=== PATIENT | male | born 1940 | race American Indian/Alaskan Native ===

== ENCOUNTER 2019-07-30 23:55 | Inpatient (IN) | payer MEDICARE, MEDICAID, OTHER ==
[2019-07-31 00:42] LABS: ANION GAP 14.9 mEq/L (7-13); CHLORIDE,CL 99 mmol/L (98-107); SODIUM,NA 140 mmol/L (136-145)
[2019-07-31] MEDS ORDERED: Iopamidol 612 MG/ML 100 ML Bottle IVPUSH ONE (01:22)
--- NOTE | 2019-07-31 01:25 | CR ---
PROCEDURE INFORMATION: Exam: XR Left Shoulder Exam date and time: 07/31/2019 1:05 AM Age: 79 years old Clinical indication: Pain; Shoulder; Left; Additional info: Fall at home pain TECHNIQUE: Imaging protocol: XR Left shoulder. Views: 2 or more views. COMPARISON: No relevant prior studies available. FINDINGS: Bones/joints: Moderate AC joint degenerative disease. No fracture or dislocation of the shoulder girdle. Incidental finding of an old posterior left 4th rib fracture which has healed. Soft tissues: Normal. IMPRESSION: 1. AC joint degenerative disease. 2. No acute shoulder fracture or dislocation.
--- NOTE | 2019-07-31 01:26 | CR ---
PROCEDURE INFORMATION: Exam: XR Left Humerus Exam date and time: 07/31/2019 1:09 AM Age: 79 years old Clinical indication: Pain; Upper arm; Left; Additional info: Fall at home pain TECHNIQUE: Imaging protocol: XR Left humerus Views: 2 or more views. COMPARISON: No relevant prior studies available. FINDINGS: Bones/joints: Normal. Soft tissues: Normal. IMPRESSION: 1. No acute findings. 2. No fracture or dislocation.
[2019-07-31] MEDS ORDERED: Sodium Chloride 0.9% 500 ML IV ONE (01:28)
[2019-07-31] MEDS ORDERED: Potassium Chloride 20 MEQ in Premix Bag 1 BAG IV ONE (01:28)
--- NOTE | 2019-07-31 01:28 | CR ---
PROCEDURE INFORMATION: Exam: XR Chest, 1 View Exam date and time: 07/31/2019 1:04 AM Age: 79 years old Clinical indication: Cough TECHNIQUE: Imaging protocol: XR of the chest Views: 1 view. COMPARISON: CR Chest 1V Frontal 01/13/2018 10:24 PM FINDINGS: Lungs: No acute lung infiltrates or consolidation. Pleural space: No pleural effusion. Heart/Mediastinum: No hilar fullness or adenopathy. Normal size heart. Vasculature: Mild ectasia of the thoracic aorta. Bones/joints: Multiple old bilateral posterior rib fractures which are healed. IMPRESSION: 1. No acute lung infiltrates or edema. 2. No pleural effusions. 3. Multiple old healed posterior rib fractures.
--- NOTE | 2019-07-31 01:33 | EDM.PDOC ---
ED HPI GENERAL MEDICAL PROBLEM - General Chief Complaint: General Stated Complaint: AMBULANCE Time Seen by Provider: 07/31/19 00:05 Source of Information: Reports: Patient, EMS History Limitations: Reports: No Limitations - History of Present Illness INITIAL COMMENTS - FREE TEXT/NARRATIVE: Multiple falls at home today. Patient states falls almost daily due to changes in BP when he stands up. Unsure why it drops. no meds, ran out 4 months ago and never refilled Reports supposed to be taking plavix for stent in left leg. Prior rib fractures on right in Mar from falling against chair. Ocassional cough since prior to rib fractures, productive white phlegm. Denies fever or chills, No nausea, Vomited one time earlier today after coughing. Not unusual to do that, Stefano excessively large for patient. Admits weight loss unsure how much. States just does not have appetite. Generalized Pain Score (Numeric/FACES): 5 - Related Data Allergies Allergy/AdvReac Type Severity Reaction Status Date / Time aspirin Allergy Cannot Verified 01/13/18 22:20 Remember azithromycin [From Zithromax] Allergy Cannot Verified 01/13/18 22:20 Remember ibuprofen [From Motrin] AdvReac Mild Abdominal Verified 01/13/18 23:07 Pain contrast Allergy Cannot Uncoded 01/13/18 22:20 Remember Home Meds: Home Meds Clopidogrel Bisulfate [Clopidogrel] 1 tab PO DAILY 04/11/14 [History] Simvastatin [Zocor] 1 tab PO BEDTIME 04/11/14 [History] traZODone HCl [Trazodone HCl] 50 mg PO BEDTIME 11/12/14 [History] buPROPion [Wellbutrin] 1 01/13/18 [History] Past Medical History - Past Health History Medical/Surgical History: Denies Medical/Surgical History HEENT History: Reports: Other (See Below) 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 eye either. Cardiovascular History: Reports: High Cholesterol Respiratory History: Reports: Bronchitis, Recurrent, PE, Other (See Below) Other Respiratory History: Has had blood clots to legs. and has a stent to the left groin area. Gastrointestinal History: Reports: Bowel Obstruction, Other (See Below) Musculoskeletal History: Reports: Arthritis, Other (See Below) Other Musculoskeletal History: fx ribs neck and legs. 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 - Past Surgical History GI Surgical History: Reports: Appendectomy, Hernia, Inguinal, Other (See Below) Other GI Surgeries/Procedures: Has esophageal ca. Social & Family History - Family History Family Medical History: Noncontributory - Tobacco Use Smoking Status *Q: Unknown Ever Smoked - Caffeine Use Caffeine Use: Reports: None - Recreational Drug Use Recreational Drug Use: No ED ROS GENERAL - Review of Systems Review Of Systems: Comprehensive ROS is negative, except as noted in HPI. ED EXAM, GENERAL - Physical Exam Exam: See Below Exam Limited By: No Limitations General Appearance: Alert, No Apparent Distress, Thin Eye Exam: Bilateral Eye: EOMI, PERRL Ears: Normal External Exam, Normal TMs Nose: Normal Inspection Throat/Mouth: Normal Inspection Head: Atraumatic, Normocephalic Respiratory/Chest: No Respiratory Distress, Lungs Clear, Decreased Breath Sounds Cardiovascular: Normal Peripheral Pulses, Regular Rate, Rhythm, Tachycardia GI/Abdominal: Normal Bowel Sounds, Soft. No: Guarding Extremities: Normal Inspection, Arm Pain (humerus) Neurological: Alert, Oriented, Normal Cognition Skin Exam: Warm, Dry, Intact, Pallor. No: Ecchymosis Course - Vital Signs Last Recorded V/S: Last Vital Signs Temp 98.4 F 07/31/19 00:05 Pulse 114 H 07/31/19 00:05 Resp 18 07/31/19 00:05 BP 123/84 07/31/19 00:05 Pulse Ox 98 07/31/19 00:05 - Orders/Labs/Meds Orders: Active Orders 24 hr Category Date Time Status EKG Documentation Completion [RC] URGENT Care 07/31/19 00:07 Active Chest w Cont [CT] Urgent Exams 07/31/19 01:21 Stop Req Potassium Chloride [KCL 20 MEQ in Water 100 ML] 20 meq Med 07/31/19 01:28 Active Premix Bag 1 bag IV ONETIME Sodium Chloride 0.9% [Normal Saline] 500 ml Med 07/31/19 01:28 Active IV ASDIRECTED Medication Orders Acetaminophen (Tylenol) 650 mg PO Q4H PRN PRN Reason: Pain (Mild 1-3)/fever Heparin Sodium (Porcine) (Heparin Sodium) 5,000 units SUBCUT Q8HR [facility] Sodium Chloride (Normal Saline) 500 mls @ 100 mls/hr IV ASDIRECTED ONE Stop: 07/31/19 06:27 Last Admin: 07/31/19 01:39 Dose: 100 mls/hr Potassium Chloride 20 meq/ (Premix) 100 mls @ 50 mls/hr IV ONETIME ONE Stop: 07/31/19 03:27 Last Admin: 07/31/19 01:39 Dose: 50 mls/hr Potassium Chloride/Sodium Chloride (Normal Saline With 20 Meq Kcl) 1,000 mls @ 100 mls/hr IV ASDIRECTED [facility] Levofloxacin (Levaquin) 750 mg PO Q48H MARIVEL Ondansetron HCl (Zofran) 4 mg IVPUSH Q6H PRN PRN Reason: Nausea/Vomiting Potassium Chloride (Potassium Chloride Solution) 40 meq PO TIDMEALS [facility] Labs: Laboratory Tests 07/31/19 07/31/19 07/31/19 Range/Units 00:04 00:04 00:04 WBC 9.2 (5.0-10.0) 10^3/uL RBC 4.57 L (4.6-6.2) 10^6/uL Hgb 12.2 L D (14.0-18.0) g/dL Hct 37.9 L (40.0-54.0) % MCV 82.9 D (80-100) fL MCH 26.7 L (27.0-34.0) pg MCHC 32.2 L (33.0-35.0) g/dL Plt Count 175 D (150-450) 10^3/uL Neut % (Auto) 87.2 H (42.2-75.2) % Lymph % (Auto) 4.2 L (20.5-50.1) % [place] % (Auto) 7.2 (2-8) % Eos % (Auto) 1.0 (1.0-3.0) % Baso % (Auto) 0.4 (0.0-1.0) % PT 9.9 (9.0-12.0) SEC INR 1.0 (0.9-1.2) D-Dimer, Quantitative 3270 H (0-400) ng/mL Sodium 140 (136-145) mmol/L Potassium 2.9 L (3.5-5.1) mmol/L Chloride 99 (98-107) mmol/L Carbon Dioxide 29 (21-32) mmol/L Anion Gap 14.9 H (7-13) mEq/L BUN 12 (7-18) mg/dL Creatinine 1.19 (0.70-1.30) mg/dL Est Cr Clr Drug Dosing 39.72 mL/min Estimated GFR (MDRD) 59 BUN/Creatinine Ratio 10.1 (No establ ref range) Glucose 96 (74-99) mg/dL Calcium 9.3 (8.5-10.1) mg/dL Magnesium 1.8 (1.8-2.4) mg/dL Total Bilirubin 0.8 (0.2-1.0) mg/dL AST 76 H (15-37) U/L ALT 61 (16-63) U/L Alkaline Phosphatase 88 (46-116) U/L CK-MB (CK-2) (0.0-3.6) ng/mL Troponin I < 0.017 (0.000-0.056) ng/mL Total Protein 7.2 (6.4-8.2) g/dL Albumin 3.4 (3.4-5.0) g/dL Globulin 3.8 Albumin/Globulin Ratio 0.9 06/17/20 Range/Units 00:04 WBC (5.0-10.0) 10^3/uL RBC (4.6-6.2) 10^6/uL Hgb (14.0-18.0) g/dL Hct (40.0-54.0) % MCV (80-100) fL MCH (27.0-34.0) pg MCHC (33.0-35.0) g/dL Plt Count (150-450) 10^3/uL Neut % (Auto) (42.2-75.2) % Lymph % (Auto) (20.5-50.1) % [place] % (Auto) (2-8) % Eos % (Auto) (1.0-3.0) % Baso % (Auto) (0.0-1.0) % PT (9.0-12.0) SEC INR (0.9-1.2) D-Dimer, Quantitative (0-400) ng/mL Sodium (136-145) mmol/L Potassium (3.5-5.1) mmol/L Chloride (98-107) mmol/L Carbon Dioxide (21-32) mmol/L Anion Gap (7-13) mEq/L BUN (7-18) mg/dL Creatinine (0.70-1.30) mg/dL Est Cr Clr Drug Dosing mL/min Estimated GFR (MDRD) BUN/Creatinine Ratio (No establ ref range) Glucose (74-99) mg/dL Calcium (8.5-10.1) mg/dL Magnesium (1.8-2.4) mg/dL Total Bilirubin (0.2-1.0) mg/dL AST (15-37) U/L ALT (16-63) U/L Alkaline Phosphatase (46-116) U/L CK-MB (CK-2) 1.4 (0.0-3.6) ng/mL Troponin I (0.000-0.056) ng/mL Total Protein (6.4-8.2) g/dL Albumin (3.4-5.0) g/dL Globulin Albumin/Globulin Ratio Meds: Medications Generic Name Dose Route Start Last Admin Trade Name Freq PRN Reason Stop Dose Admin Acetaminophen 650 mg 07/31/19 01:46 Tylenol PO Q4H PRN Pain (Mild 1-3)/fever Heparin Sodium (Porcine) 5,000 units 07/31/19 06:00 Heparin Sodium SUBCUT Q8HR [facility] Sodium Chloride 500 mls @ 100 mls/hr 07/31/19 01:28 07/31/19 01:39 Normal Saline IV 07/31/19 06:27 100 mls/hr ASDIRECTED ONE Administration Potassium Chloride 20 meq/ 100 mls @ 50 mls/hr 07/31/19 01:28 07/31/19 01:39 Premix IV 07/31/19 03:27 50 mls/hr ONETIME ONE Administration Potassium Chloride/Sodium Chloride 1,000 mls @ 100 mls/hr 07/31/19 02:00 Normal Saline With 20 Meq Kcl IV ASDIRECTED MARIVEL Levofloxacin 750 mg 08/01/19 22:00 Levaquin PO Q48H [facility] Ondansetron HCl 4 mg 07/31/19 01:46 Zofran IVPUSH Q6H PRN Nausea/Vomiting Potassium Chloride 40 meq 06/17/20 03:53 Potassium Chloride Solution PO TIDMEALS MARIVEL Discontinued Medications Generic Name Dose Route Start Last Admin Trade Name Ariana PRN Reason Stop Dose Admin Iopamidol 100 ml 07/31/19 01:22 07/31/19 01:42 Isovue-300 (61%) IVPUSH 07/31/19 01:23 Not Given ONETIME ONE Levofloxacin 750 mg 07/31/19 02:30 Levaquin PO 07/31/19 02:31 ONETIME ONE Departure - Departure Time of Disposition: 03:02 Disposition: Refer to Observation Condition: Good Clinical Impression: Right upper limb pain, Hypokalemia, Pneumonitis Fall at home Qualifiers: Encounter type: initial encounter Qualified Code(s): W19.XXXA - Unspecified fall, initial encounter; Y92.009 - Unspecified place in unspecified non- institutional (private) residence as the place of occurrence of the external cause - Discharge Information *PRESCRIPTION DRUG MONITORING PROGRAM REVIEWED*: No *COPY OF PRESCRIPTION DRUG MONITORING REPORT IN PATIENT YOHANA: No Sepsis Event Note (ED) - Evaluation Sepsis Screening Result: No Definite Risk - Focused Exam Vital Signs: Vital Signs Temp Pulse Resp BP Pulse Ox 07/31/19 00:05 98.4 F 114 H 18 123/84 98 - My Orders Last 24 Hours: My Active Orders 07/31/19 00:07 EKG Documentation Completion [RC] URGENT 07/31/19 01:21 Chest w Cont [CT] Urgent 07/31/19 01:28 Potassium Chloride [KCL 20 MEQ in Water 100 ML] 20 meq Premix Bag 1 bag IV ONETIME Sodium Chloride 0.9% [Normal Saline] 500 ml IV ASDIRECTED - Assessment/Plan Last 24 Hours: My Active Orders 07/31/19 00:07 EKG Documentation Completion [RC] URGENT 07/31/19 01:21 Chest w Cont [CT] Urgent 07/31/19 01:28 Potassium Chloride [KCL 20 MEQ in Water 100 ML] 20 meq Premix Bag 1 bag IV ONETIME Sodium Chloride 0.9% [Normal Saline] 500 ml IV ASDIRECTED
--- NOTE | 2019-07-31 01:37 | CT ---
PROCEDURE INFORMATION: Exam: CT Head Without Contrast Exam date and time: 07/31/2019 1:26 AM Age: 79 years old Clinical indication: Weakness, extremity; Patient HX: Frequent falls, weakness; Additional info: Cough TECHNIQUE: Imaging protocol: Computed tomography of the head without contrast. Radiation optimization: All CT scans at this facility use at least one of these dose optimization techniques: automated exposure control; mA and/or kV adjustment per patient size (includes targeted exams where dose is matched to clinical indication); or iterative reconstruction. COMPARISON: No relevant prior studies available. FINDINGS: Brain: There is diffuse cerebral atrophy concordant with the patient's age. Chronic small vessel deep white matter ischemic disease is suggested by areas of patchy white matter low attenuation. No intracranial hemorrhage. No acute large territory CVA. No mass. No acute edema. No acute intracranial abnormality. Ventricles: Normal. No ventriculomegaly. Bones/joints: Unremarkable. No acute fracture. Sinuses: Visualized sinuses are unremarkable. No fluid levels. Mastoid air cells: Visualized mastoid air cells are well aerated. Soft tissues: Unremarkable. IMPRESSION: 1. No acute intracranial abnormality. 2. Atrophy and chronic small vessel deep white matter ischemic changes.
[2019-07-31] MEDS ORDERED: Acetaminophen 325 MG Tab PO PRN (01:46)
[2019-07-31] MEDS ORDERED: Ondansetron 4 MG/2 ML SDV IVPUSH PRN (01:46)
--- NOTE | 2019-07-31 01:47 | CT ---
PROCEDURE INFORMATION: Exam: CT Chest Without Contrast Exam date and time: 07/31/2019 1:33 AM Age: 79 years old Clinical indication: Cough; Additional info: Elvated ddimer cough TECHNIQUE: Imaging protocol: Computed tomography of the chest without contrast. Radiation optimization: All CT scans at this facility use at least one of these dose optimization techniques: automated exposure control; mA and/or kV adjustment per patient size (includes targeted exams where dose is matched to clinical indication); or iterative reconstruction. COMPARISON: CR Chest 1V Frontal 07/31/2019 1:04 AM FINDINGS: Lungs: Emphysematous lung changes. Early infiltrative disease in the right upper lobe with tree-in-bud appearance. Minor left upper lobe infiltrate with tree-in-bud appearance. Slightly smaller than right-sided area of infiltrate. Left upper lobe lobular suspicious nodule measuring 9 mm. See series 3, image 9. This is noncalcified. Pleural space: Unremarkable. No pneumothorax. No pleural effusion. Heart: Unremarkable. No cardiomegaly. No pericardial effusion. Aorta: Unremarkable. No aortic aneurysm. Lymph nodes: Unremarkable. No enlarged lymph nodes. Liver: Fatty liver changes. Kidneys and ureters: Punctate nonobstructive right renal calculus measuring approximately 2 mm. Bones/joints: Severe degenerative thoracic spine disease. Kyphosis. Multiple upper thoracic chronic compression fractures. Soft tissues: Unremarkable. IMPRESSION: 1. Early infiltrative changes in the right upper lobe and left upper lobe. Findings are most consistent with early bacterial pneumonitis with tree-in-bud appearance. No segmental or lobar consolidation. 2. Left upper lobe 9 mm lobular nodule. For both low risk and high risk patients, consider CT at 3 months, PET/CT or biopsy. (Solitario et al., Fleischner Society, 2017) 3. Emphysematous lung changes. 4. Fatty liver disease. 5. Nonobstructive 2 mm right renal calculus. 6. Severe degenerative thoracic spine disease. Kyphosis. Multilevel mid thoracic compression fractures.
[2019-07-31] MEDS ORDERED: Levofloxacin 500 MG Tab PO ONE (02:30)
[2019-07-31] MEDS: Potassium Chloride 10% 20 MEQ/15 ML Soln 15 ML UD Cup PO SCH ×2 (03:06→09:29)
[2019-07-31 08:07] LABS: ANION GAP 12.8 mEq/L (7-13); CHLORIDE,CL 103 mmol/L (98-107); SODIUM,NA 142 mmol/L (136-145)
[2019-07-31] MEDS: Heparin Sodium 5,000 Units/ML Vial SUBCUT SCH ×3 (08:16→21:41)
--- NOTE | 2019-07-31 10:37 | PCM.HP ---
H&P History of Present Illness - General Date of Service: 07/31/19 Admit Problem/Dx: Admission Diagnosis/Problem Admission Diagnosis/Problem Hypokalemia due to loss of potassium Source of Information: Patient - History of Present Illness Initial Comments - Free Text/Narative: Is a 79-year-old man with medical history of esophageal cancer status post chemotherapy. Patient completed chemotherapy in January 2019. He also has history of previous cerebrovascular accident, DVT/pulmonary embolism. He lives alone. He has not been taking his medications. Patient presented via the emergency room with recurrent falls. Had multiple falls yesterday. Feels dizzy when he stands up which he describes as lig htheadedness. Also indicates that he has been coughing. Cough is mild and nonproductive. No hemoptysis. This has been going on for several months. Intensity has not really changed much lately. Denies having fever chills or rigors. Generalized Pain Score (Numeric/FACES): 5 - Related Data Allergies/Adverse Reactions: Allergies Allergy/AdvReac Type Severity Reaction Status Date / Time aspirin Allergy Cannot Verified 01/13/18 22:20 Remember azithromycin [From Zithromax] Allergy Cannot Verified 01/13/18 22:20 Remember ibuprofen [From Motrin] AdvReac Mild Abdominal Verified 01/13/18 23:07 Pain contrast Allergy Cannot Uncoded 01/13/18 22:20 Remember Home Medications: Home Meds buPROPion [Wellbutrin] 1 tab PO BID 01/13/18 [History] Clopidogrel Bisulfate [Clopidogrel] 1 tab PO DAILY 07/31/19 [History] Ferrous Sulfate 1 tab PO DAILY 07/31/19 [History] QUEtiapine [SEROquel] 100 mg PO BEDTIME 07/31/19 [History] Past Medical History - Past Health History Medical/Surgical History: Denies Medical/Surgical History HEENT History: Reports: Other (See Below) 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 eye either. Cardiovascular History: Reports: High Cholesterol Respiratory History: Reports: Bronchitis, Recurrent, PE, Other (See Below) Other Respiratory History: Has had blood clots to legs. and has a stent to the left groin area. Gastrointestinal History: Reports: Bowel Obstruction, Other (See Below) Musculoskeletal History: Reports: Arthritis, Other (See Below) Other Musculoskeletal History: fx ribs neck and legs. 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 - Past Surgical History GI Surgical History: Reports: Appendectomy, Hernia, Inguinal, Other (See Below) Other GI Surgeries/Procedures: Has esophageal ca. Social & Family History - Family History Family Medical History: Noncontributory - Tobacco Use Smoking Status *Q: Unknown Ever Smoked - Caffeine Use Caffeine Use: Reports: None - Recreational Drug Use Recreational Drug Use: No H&P Review of Systems - Review of Systems: Review Of Systems: See Below General: Reports: Weakness, Fatigue, Decreased Appetite, Weight Loss Pulmonary: Reports: Wheezing, Cough Cardiovascular: Reports: No Symptoms Gastrointestinal: Reports: No Symptoms Genitourinary: Reports: No Symptoms Musculoskeletal: Reports: No Symptoms Skin: Reports: No Symptoms Hematologic/Lymphatic: Reports: No Symptoms Exam - Exam Exam: See Below - Vital Signs Vital Signs: Last Vital Signs Temp 36.1 C 07/31/19 08:18 Pulse 75 07/31/19 08:18 Resp 20 07/31/19 08:18 BP 107/55 L 07/31/19 08:18 Pulse Ox 100 07/31/19 08:18 Orthostatic Blood Pressure [ 63/44 Standing] Orthostatic Blood Pressure [ 91/54 Sitting] Orthostatic Blood Pressure [ 105/55 Supine] Weight: 54.023 kg - Exam Quality Assessment: Supplemental Oxygen General: Alert, Oriented Neck: Supple, Trachea Midline Lungs: Clear to Auscultation, Normal Respiratory Effort Cardiovascular: Regular Rate, Regular Rhythm GI/Abdominal Exam: Normal Bowel Sounds, Soft Back Exam: Normal Inspection, Full Range of Motion, NT Skin: Warm, Dry - Patient Data Lab Results Last 24 hrs: Laboratory Results - last 24 hr 07/31/19 07/31/19 07/31/19 Range/Units 00:04 00:04 00:04 WBC 9.2 (5.0-10.0) 10^3/uL RBC 4.57 L (4.6-6.2) 10^6/uL Hgb 12.2 L D (14.0-18.0) g/dL Hct 37.9 L (40.0-54.0) % MCV 82.9 D (80-100) fL MCH 26.7 L (27.0-34.0) pg MCHC 32.2 L (33.0-35.0) g/dL Plt Count 175 D (150-450) 10^3/uL Neut % (Auto) 87.2 H (42.2-75.2) % Lymph % (Auto) 4.2 L (20.5-50.1) % Ellsworth % (Auto) 7.2 (2-8) % Eos % (Auto) 1.0 (1.0-3.0) % Baso % (Auto) 0.4 (0.0-1.0) % PT 9.9 (9.0-12.0) SEC INR 1.0 (0.9-1.2) D-Dimer, Quantitative 3270 H (0-400) ng/mL Sodium 140 (136-145) mmol/L Potassium 2.9 L (3.5-5.1) mmol/L Chloride 99 (98-107) mmol/L Carbon Dioxide 29 (21-32) mmol/L Anion Gap 14.9 H (7-13) mEq/L BUN 12 (7-18) mg/dL Creatinine 1.19 (0.70-1.30) mg/dL Est Cr Clr Drug Dosing 39.72 mL/min Estimated GFR (MDRD) 59 BUN/Creatinine Ratio 10.1 (No establ ref range) Glucose 96 (74-99) mg/dL Calcium 9.3 (8.5-10.1) mg/dL Magnesium 1.8 (1.8-2.4) mg/dL Total Bilirubin 0.8 (0.2-1.0) mg/dL AST 76 H (15-37) U/L ALT 61 (16-63) U/L Alkaline Phosphatase 88 (46-116) U/L CK-MB (CK-2) (0.0-3.6) ng/mL Troponin I < 0.017 (0.000-0.056) ng/mL Total Protein 7.2 (6.4-8.2) g/dL Albumin 3.4 (3.4-5.0) g/dL Globulin 3.8 Albumin/Globulin Ratio 0.9 SARS-CoV-2 RNA (RT-PCR) (NEGATIVE) 07/31/19 07/31/19 07/31/19 Range/Units 00:04 06:33 09:50 WBC (5.0-10.0) 10^3/uL RBC (4.6-6.2) 10^6/uL Hgb (14.0-18.0) g/dL Hct (40.0-54.0) % MCV (80-100) fL MCH (27.0-34.0) pg MCHC (33.0-35.0) g/dL Plt Count (150-450) 10^3/uL Neut % (Auto) (42.2-75.2) % Lymph % (Auto) (20.5-50.1) % Ellsworth % (Auto) (2-8) % Eos % (Auto) (1.0-3.0) % Baso % (Auto) (0.0-1.0) % PT (9.0-12.0) SEC INR (0.9-1.2) D-Dimer, Quantitative (0-400) ng/mL Sodium 142 (136-145) mmol/L Potassium 3.8 (3.5-5.1) mmol/L Chloride 103 (98-107) mmol/L Carbon Dioxide 30 (21-32) mmol/L Anion Gap 12.8 (7-13) mEq/L BUN 12 (7-18) mg/dL Creatinine 1.07 (0.70-1.30) mg/dL Est Cr Clr Drug Dosing 44.18 mL/min Estimated GFR (MDRD) > 60 BUN/Creatinine Ratio (No establ ref range) Glucose 97 (74-99) mg/dL Calcium 8.4 L (8.5-10.1) mg/dL Magnesium (1.8-2.4) mg/dL Total Bilirubin (0.2-1.0) mg/dL AST (15-37) U/L ALT (16-63) U/L Alkaline Phosphatase (46-116) U/L CK-MB (CK-2) 1.4 (0.0-3.6) ng/mL Troponin I (0.000-0.056) ng/mL Total Protein (6.4-8.2) g/dL Albumin (3.4-5.0) g/dL Globulin Albumin/Globulin Ratio SARS-CoV-2 RNA (RT-PCR) Negative (NEGATIVE) Result Diagrams: 07/31/19 00:04 07/31/19 06:33 Collin Results Last 24 hrs: Microbiology 07/31/19 00:57 Stool Occult Blood (COLLIN) - Final Stool / Feces Problem List Initiated/Reviewed/Updated: Yes Orders Last 24hrs: Active Orders 24 hr Category Date Time Status Patient Status [ADT] Routine ADT 07/31/19 01:46 Active Cardiac Monitoring [RC] 08,20 Care 07/31/19 01:48 Active Intake and Output [RC] QSHIFT Care 07/31/19 01:48 Active Orthostatic Vital Signs [RC] ASDIRECTED Care 07/31/19 09:59 Active Oxygen Therapy [RC] PRN Care 07/31/19 01:46 Active Up With Assistance [RC] ASDIRECTED Care 07/31/19 01:46 Active VTE/DVT Education [RC] PER UNIT ROUTINE Care 07/31/19 01:46 Active Vital Signs [RC] Q4H Care 07/31/19 01:46 Active OT Evaluation and Treatment [CONS] Routine Cons 07/31/19 09:57 Active PT Evaluation and Treatment [CONS] Routine Cons 07/31/19 09:57 Active [employer]ER Eval and Treat [ST[employer]ISSI[employer]S OFFICER Evaluation and Treatment] [CONS Cons 07/31/19 09:58 Active ] Routine Regular Diet [DIET] Diet 07/31/19 Breakfast Active Chest w Cont [CT] Urgent Exams 07/31/19 01:21 Stop Req Acetaminophen [Tylenol] Med 07/31/19 01:46 Active 650 mg PO Q4H PRN Heparin Sodium Med 07/31/19 06:00 Active 5,000 units SUBCUT Q8HR NS + KCl 20mEq/L [Normal Saline with 20 mEq KCl] 1,000 Med 07/31/19 02:00 Active ml IV ASDIRECTED Ondansetron [Zofran] Med 07/31/19 01:46 Active 4 mg IVPUSH Q6H PRN Potassium Chloride [Potassium Chloride Solution] Med 07/31/19 03:53 Active 40 meq PO TIDMEALS levoFLOXacin [Levaquin] Med 08/01/19 22:00 Active 750 mg PO Q48H Resuscitation Status Routine Resus Stat 07/31/19 01:46 Ordered Medication Orders Acetaminophen (Tylenol) 650 mg PO Q4H PRN PRN Reason: Pain (Mild 1-3)/fever Heparin Sodium (Porcine) (Heparin Sodium) 5,000 units SUBCUT Q8HR [facility] Last Admin: 07/31/19 08:16 Dose: Not Given Documented by: JERRY Potassium Chloride/Sodium Chloride (Normal Saline With 20 Meq Kcl) 1,000 mls @ 100 mls/hr IV ASDIRECTED [facility] Levofloxacin (Levaquin) 750 mg PO Q48H MARIVEL Ondansetron HCl (Zofran) 4 mg IVPUSH Q6H PRN PRN Reason: Nausea/Vomiting Potassium Chloride (Potassium Chloride Solution) 40 meq PO TIDMEALS [facility] Last Admin: 07/31/19 09:29 Dose: 40 meq Documented by: Admin: 07/31/19 03:06 Dose: 40 meq Documented by: ZEUS Assessment/Plan Comment:: #. Recurrent falls These are likely due to orthostatic hypotension #. Orthostatic hypotension Patient blood pressure drops markedly when he stands up He gets symptomatic with it #. Pneumonia CT scan of the chest showed multifocal areas of infiltrate Patient has been coughing. Does sometimes has trouble with swallowing liquids. Raises concern about aspiration pneumonia #. History of cerebrovascular accident Was supposed to be on Plavix. Has not been taking it #. History of DVT/pulmonary embolism Name evidence of PE on CT scan #. History of esophageal cancer Completed treatment, chemotherapy Plan: Admit patient to medical floor Intravenous fluid for rehydration Check orthostatic vital signs Send sample for cortisol level Send sample for TSH level If patient's symptoms does not resolve with hydration, I will consider use of Florinef all midodrine. Send sputum for Gram stain and cultures Start patient on levofloxacin to cover for pneumonia.
[2019-07-31] MEDS ORDERED: Metoclopramide 10 MG/2 ML SDV IVPUSH PRN (10:53)
[2019-07-31] MEDS: Potassium Chloride 10 MEQ Tab.ER PO SCH ×2 (13:25→17:30)
[2019-07-31] MEDS: NS + KCl 20mEq/L 1,000 ML IV SCH (15:22)
[2019-08-01] MEDS: NS + KCl 20mEq/L 1,000 ML IV SCH ×3 (01:26→22:38)
[2019-08-01] MEDS: Heparin Sodium 5,000 Units/ML Vial SUBCUT SCH ×3 (05:49→21:52)
[2019-08-01] MEDS ORDERED: Fludrocortisone 0.1 MG Tab PO SCH (08:00)
[2019-08-01] MEDS: Potassium Chloride 10 MEQ Tab.ER PO SCH ×3 (09:24→17:30)
--- NOTE | 2019-08-01 10:40 | PCM.PN ---
- General Info Date of Service: 08/01/19 - Review of Systems General: Reports: Weakness, Malaise Pulmonary: Reports: Shortness of Breath, Cough Cardiovascular: Reports: Lightheadedness Gastrointestinal: Reports: Diarrhea Musculoskeletal: Reports: No Symptoms Skin: Reports: No Symptoms Neurological: Reports: Dizziness - Patient Data Vitals - Most Recent: Last Vital Signs Temp 36.6 C 08/01/19 08:14 Pulse 82 08/01/19 08:14 Resp 20 08/01/19 08:14 BP 117/64 08/01/19 08:14 Pulse Ox 99 08/01/19 08:14 Orthostatic Blood Pressure [ 63/44 Standing] Orthostatic Blood Pressure [ 91/54 Sitting] Orthostatic Blood Pressure [ 105/55 Supine] Weight - Most Recent: 54.023 kg I&O - Last 24 Hours: Intake & Output 07/31/19 08/01/19 08/01/19 22:59 06:59 14:59 Intake Total 120 1553 310 Output Total 550 Balance 120 1003 310 Lab Results Last 24 Hours: Laboratory Results - last 24 hr 07/31/19 07/31/19 Range/Units 00:04 00:04 TSH, Ultra Sensitive 0.55 (0.36-3.74) uIU/mL Cortisol 17.7 ug/dL Med Orders - Current: Current Medications Acetaminophen (Tylenol) 650 mg PO Q4H PRN PRN Reason: Pain (Mild 1-3)/fever Fludrocortisone Acetate (Florinef) 0.1 mg PO WITHBREAKFAST [facility] Heparin Sodium (Porcine) (Heparin Sodium) 5,000 units SUBCUT Q8HR [facility] Last Admin: 08/01/19 05:49 Dose: 5,000 units Documented by: Potassium Chloride/Sodium Chloride (Normal Saline With 20 Meq Kcl) 1,000 mls @ 100 mls/hr IV ASDIRECTED [facility] Last Admin: 08/01/19 01:26 Dose: 100 mls/hr Documented by: Levofloxacin (Levaquin) 750 mg PO Q48H [facility] Metoclopramide HCl (Reglan) 10 mg IVPUSH Q6H PRN PRN Reason: nausea and vomiting Midodrine (Midodrine) 5 mg PO BIDAC [facility] Potassium Chloride (Klor-Con 10) 20 meq PO TIDMEALS [facility] Last Admin: 08/01/19 09:24 Dose: 20 meq Documented by: Discontinued Medications Sodium Chloride (Normal Saline) 500 mls @ 100 mls/hr IV ASDIRECTED ONE Stop: 07/31/19 06:27 Last Admin: 07/31/19 01:39 Dose: 100 mls/hr Documented by: Potassium Chloride 20 meq/ (Premix) 100 mls @ 50 mls/hr IV ONETIME ONE Stop: 07/31/19 03:27 Last Admin: 07/31/19 01:39 Dose: 50 mls/hr Documented by: Iopamidol (Isovue-300 (61%)) 100 ml IVPUSH ONETIME ONE Stop: 07/31/19 01:23 Last Admin: 07/31/19 01:42 Dose: Not Given Documented by: Levofloxacin (Levaquin) 750 mg PO ONETIME ONE Stop: 07/31/19 02:31 Last Admin: 07/31/19 03:06 Dose: 750 mg Documented by: Ondansetron HCl (Zofran) 4 mg IVPUSH Q6H PRN PRN Reason: Nausea/Vomiting Potassium Chloride (Potassium Chloride Solution) 40 meq PO TIDMEALS [facility] Last Admin: 07/31/19 09:29 Dose: 40 meq Documented by: - Exam General: Alert, Oriented, Cooperative Neck: Supple Lungs: Clear to Auscultation, Normal Respiratory Effort Cardiovascular: Regular Rate, Regular Rhythm GI/Abdominal Exam: Normal Bowel Sounds, Soft, Non-Tender, No Organomegaly, No Distention, No Abnormal Bruit, No Mass, Pelvis Stable Extremities: Normal Inspection, Normal Range of Motion, Non-Tender, No Pedal Edema, Normal Capillary Refill Skin: Warm, Dry, Intact Sepsis Event Note - Evaluation Sepsis Screening Result: No Definite Risk - Focused Exam Vital Signs: Vital Signs Temp Pulse Resp BP Pulse Ox Pulse Ox 08/01/19 08:14 36.6 C 82 20 117/64 99 08/01/19 05:05 36.3 C 65 20 113/63 99 08/01/19 01:46 100 08/01/19 00:42 36.7 C 69 20 99/56 L 99 Date Exam was Performed: 08/01/19 Time Exam was Performed: 10:44 - Problem List Review Problem List Initiated/Reviewed/Updated: Yes - My Orders Last 24 Hours: My Active Orders 07/31/19 09:57 OT Evaluation and Treatment [CONS] Routine PT Evaluation and Treatment [CONS] Routine 07/31/19 09:59 Orthostatic Vital Signs [RC] ASDIRECTED 07/31/19 10:47 Admission Status [Patient Status] [ADT] Routine 07/31/19 10:53 Metoclopramide [Reglan] 10 mg IVPUSH Q6H PRN 07/31/19 11:05 OT Evaluation and Treatment [CONS] Routine 07/31/19 12:00 Potassium Chloride [Klor-Con 10] 20 meq PO TIDMEALS 08/01/19 08:00 Fludrocortisone [Florinef] 0.1 mg PO WITHBREAKFAST 08/01/19 10:32 CLOSTRIDIUM DIFFICILE TOX RFLX [MREF] Routine 08/01/19 10:33 Isolation [COMM] Stat 08/01/19 10:34 Swallow Screen [Nursing Bedside Swallow Screen] [RC] ASDIRECTED 08/01/19 16:00 Midodrine 5 mg PO BIDAC 08/01/19 22:00 levoFLOXacin [Levaquin] 750 mg PO Q48H 08/02/19 05:11 BASIC METABOLIC PANEL,BMP [CHEM] AM CBC W/O DIFF,HEMOGRAM [HEME] AM - Plan Plan:: #. Recurrent falls These are likely due to orthostatic hypotension #. Orthostatic hypotension Improving with fluids #. Pneumonia CT scan of the chest showed multifocal areas of infiltrate Patient has been coughing. Does sometimes has trouble with swallowing liquids. Raises concern about aspiration pneumonia #. History of cerebrovascular accident Was supposed to be on Plavix. Has not been taking it #. History of DVT/pulmonary embolism Name evidence of PE on CT scan #. History of esophageal cancer Completed treatment, chemotherapy Plan: Recheck orthostatic vital signs No indication for florinef Continue IV Fluids PT/OT
[2019-08-01] MEDS ORDERED: Midodrine 2.5 MG Tab PO SCH (16:00)
[2019-08-01] MEDS ORDERED: Levofloxacin 500 MG Tab PO SCH (22:00)
[2019-08-02] MEDS: Heparin Sodium 5,000 Units/ML Vial SUBCUT SCH (06:01)
[2019-08-02 06:45] LABS: ANION GAP 11.1 mEq/L (7-13); CHLORIDE,CL 113 mmol/L (98-107); SODIUM,NA 144 mmol/L (136-145)
[2019-08-02 08:19] VITALS: BP 117/66; PULSE 75
[2019-08-02] MEDS: Potassium Chloride 10 MEQ Tab.ER PO SCH (09:02)
--- NOTE | 2019-08-02 09:52 | PCM.DCSUM1 ---
Discharge Summary - Hospital Course Free Text/Narrative:: Is a 79-year-old man with medical history of esophageal cancer status post chemotherapy. Patient completed chemotherapy in January 2019. He also has history of previous cerebrovascular accident, DVT/pulmonary embolism. He lives alone. He was not been taking his medications. Patient presented via the emergency room with recurrent falls.Was found to be dehydrated and was treated with IV fluids. Developed hemodiluation with fluids but remained stable. Due to severe dehydration was found to have orthostatic hypotension. This resolved with IV fluid. CT of the chest suggested pneumonia. Patient was coughing and we checked him for aspiration pneumonia given his previous hx of esophageal cancer. Will be discharged home to follow up with PMD. #. Recurrent falls These was likely due to orthostatic hypotension #. Orthostatic hypotension Due to severe dehydration #. Pneumonia CT scan of the chest showed multifocal areas of infiltrate Patient has been coughing. #. History of cerebrovascular accident Was supposed to be on Plavix. Has not been taking it #. History of DVT/pulmonary embolism Name evidence of PE on CT scan #. History of esophageal cancer Completed treatment, chemotherapy Diagnosis: Stroke: No - Discharge Data Discharge Date: 08/02/19 Discharge Disposition: Home, Self-Care 01 Condition: Stable - Referral to Home Health Primary Care Physician: PCP None - Patient Summary/Data Consults: Consultations 07/31/19 09:57 OT Evaluation and Treatment [CONS] Routine PT Evaluation and Treatment [CONS] Routine 07/31/19 11:05 OT Evaluation and Treatment [CONS] Routine - Patient Instructions Diet: Usual Diet as Tolerated Activity: As Tolerated Notify Provider of: Fever, Increased Pain, Swelling and Redness Other/Special Instructions: BMP, CBC in one week. F/up with PMD in one week - Discharge Plan *PRESCRIPTION DRUG MONITORING PROGRAM REVIEWED*: No *COPY OF PRESCRIPTION DRUG MONITORING REPORT IN PATIENT YOHANA: No Prescriptions/Med Rec: Loperamide [Imodium] 2 mg PO Q6H PRN #30 cap PRN Reason: diarrhea Potassium Chloride [Klor-Con 10] 20 meq PO DAILY 30 Days tab.er Home Medications: Home Meds buPROPion [Wellbutrin] 1 tab PO BID 01/13/18 [History] Clopidogrel Bisulfate [Clopidogrel] 1 tab PO DAILY 07/31/19 [History] Ferrous Sulfate 1 tab PO DAILY 07/31/19 [History] QUEtiapine [SEROquel] 100 mg PO BEDTIME 07/31/19 [History] Loperamide [Imodium] 2 mg PO Q6H PRN #30 cap 08/02/19 [Rx] Potassium Chloride [Klor-Con 10] 20 meq PO DAILY 30 Days tab.er 08/02/19 [Rx] levoFLOXacin [Levaquin] 750 mg PO Q48H #4 tablet 08/02/19 [Rx] Oxygen Therapy Mode: Nasal Cannula Referrals: PCP,None [Primary Care Provider] - - Discharge Summary/Plan Comment DC Time >30 min.: No - Review of Systems General: Reports: No Symptoms HEENT: Reports: No Symptoms Pulmonary: Reports: Cough Cardiovascular: Reports: No Symptoms Gastrointestinal: Reports: No Symptoms Musculoskeletal: Reports: No Symptoms - Patient Data Vitals - Most Recent: Last Vital Signs Temp 36.9 C 08/02/19 08:00 Pulse 75 08/02/19 08:00 Resp 18 08/02/19 08:00 BP 117/66 08/02/19 08:00 Pulse Ox 100 08/02/19 08:00 Orthostatic Blood Pressure [ 103/58 Standing] Orthostatic Blood Pressure [ 99/73 Sitting] Orthostatic Blood Pressure [ 101/64 Supine] Weight - Most Recent: 54.023 kg I&O - Last 24 hours: Intake & Output 08/01/19 08/02/19 08/02/19 22:59 06:59 14:59 Intake Total 320 400 440 Output Total 450 300 Balance 320 -50 140 Lab Results - Last 24 hrs: Laboratory Results - last 24 hr 08/02/19 08/02/19 Range/Units 06:10 06:10 WBC 5.1 (5.0-10.0) 10^3/uL RBC 3.36 L (4.6-6.2) 10^6/uL Hgb 8.9 L D (14.0-18.0) g/dL Hct 29.2 L (40.0-54.0) % MCV 86.9 D (80-100) fL MCH 26.5 L (27.0-34.0) pg MCHC 30.5 L (33.0-35.0) g/dL Plt Count 181 (150-450) 10^3/uL Sodium 144 (136-145) mmol/L Potassium 5.1 (3.5-5.1) mmol/L Chloride 113 H (98-107) mmol/L Carbon Dioxide 25 (21-32) mmol/L Anion Gap 11.1 (7-13) mEq/L BUN 8 (7-18) mg/dL Creatinine 0.74 (0.70-1.30) mg/dL Est Cr Clr Drug Dosing 63.88 mL/min Estimated GFR (MDRD) > 60 Glucose 92 (74-99) mg/dL Calcium 7.9 L (8.5-10.1) mg/dL JAYESH Results - Last 24 hrs: Microbiology 08/01/19 13:05 Clostridioides difficile (PCR) - Final Stool / Feces Clostridioides difficile Toxin Assay - Final Med Orders - Current: Current Medications Acetaminophen (Tylenol) 650 mg PO Q4H PRN PRN Reason: Pain (Mild 1-3)/fever Heparin Sodium (Porcine) (Heparin Sodium) 5,000 units SUBCUT Q8HR [facility] Last Admin: 08/02/19 06:01 Dose: 5,000 units Documented by: Potassium Chloride/Sodium Chloride (Normal Saline With 20 Meq Kcl) 1,000 mls @ 100 mls/hr IV ASDIRECTED [facility] Last Admin: 08/01/19 22:38 Dose: 100 mls/hr Documented by: Levofloxacin (Levaquin) 750 mg PO Q48H [facility] Last Admin: 08/01/19 21:52 Dose: 750 mg Documented by: Metoclopramide HCl (Reglan) 10 mg IVPUSH Q6H PRN PRN Reason: nausea and vomiting Potassium Chloride (Klor-Con 10) 20 meq PO TIDMEALS [facility] Last Admin: 08/02/19 09:02 Dose: 20 meq Documented by: Discontinued Medications Fludrocortisone Acetate (Florinef) 0.1 mg PO WITHBREAKFAST [facility] Last Admin: 08/01/19 10:59 Dose: Not Given Documented by: Sodium Chloride (Normal Saline) 500 mls @ 100 mls/hr IV ASDIRECTED ONE Stop: 07/31/19 06:27 Last Admin: 07/31/19 01:39 Dose: 100 mls/hr Documented by: Potassium Chloride 20 meq/ (Premix) 100 mls @ 50 mls/hr IV ONETIME ONE Stop: 07/31/19 03:27 Last Admin: 07/31/19 01:39 Dose: 50 mls/hr Documented by: Iopamidol (Isovue-300 (61%)) 100 ml IVPUSH ONETIME ONE Stop: 07/31/19 01:23 Last Admin: 07/31/19 01:42 Dose: Not Given Documented by: Levofloxacin (Levaquin) 750 mg PO ONETIME ONE Stop: 07/31/19 02:31 Last Admin: 07/31/19 03:06 Dose: 750 mg Documented by: Midodrine (Midodrine) 5 mg PO BIDAC MARIVEL Ondansetron HCl (Zofran) 4 mg IVPUSH Q6H PRN PRN Reason: Nausea/Vomiting Potassium Chloride (Potassium Chloride Solution) 40 meq PO TIDMEALS [facility]IVEL Last Admin: 07/31/19 09:29 Dose: 40 meq Documented by: - Exam General: Reports: Alert, Oriented, Cooperative Neck: Reports: Supple, No Thyromegaly Lungs: Reports: Decreased Breath Sounds Cardiovascular: Reports: Regular Rate, Regular Rhythm GI/Abdominal Exam: Normal Bowel Sounds, Soft, Non-Tender, No Organomegaly, No Distention, No Abnormal Bruit, No Mass, Pelvis Stable
== END 2019-08-02 12:00 | disposition home or self-care (01) | DRG 640 ==
LOC: DL.ED 23:55 → UNDOADMOB 07-31 01:46 → DL.MS 07-31 01:46 → INTOOBSV 07-31 10:47 → OBSVTOIN 07-31 10:47 → DL.MS 07-31 10:47
PROVIDERS: ADMIT Hospitalist; ATTEND Hospitalist
DX: E86.0 Dehydration (principal); I95.1 Orthostatic hypotension; J18.9 Pneumonia, unspecified organism; R29.6 Repeated falls; I95.9 Hypotension, unspecified; H54.62 Unqualified visual loss, left eye, normal vision right eye; F41.0 Panic disorder [episodic paroxysmal anxiety]; E78.00 Pure hypercholesterolemia, unspecified; M19.90 Unspecified osteoarthritis, unspecified site; F32.9 Major depressive disorder, single episode, unspecified; Z86.711 Personal history of pulmonary embolism; Z86.718 Personal history of other venous thrombosis and embolism; Z90.49 Acquired absence of other specified parts of digestive tract; Z79.02 Long term (current) use of antithrombotics/antiplatelets; H54.7 Unspecified visual loss; Z85.01 Personal history of malignant neoplasm of esophagus; Z92.21 Personal history of antineoplastic chemotherapy; Z86.73 Personal history of transient ischemic attack (TIA), and cerebral infarction without residual deficits; F41.9 Anxiety disorder, unspecified; Z88.6 Allergy status to analgesic agent; Z88.1 Allergy status to other antibiotic agents; Z91.041 Radiographic dye allergy status; Z79.899 Other long term (current) drug therapy
CPT/HCPCS: 36415; 70450; 71045; 71250; 73030-LT; 73060-LT; 80048; 80053; 82272; 82533; 82553; 83735; 84443; 84484; 85025; 85027; 85379; 85610; 87493; 92610-GN; 93005; 96365; 97116-GP; 97162-GP; 97165-GO; 99285-25; A9270-GY; J1644; J3480; J7040; U0002

== ENCOUNTER 2020-04-27 13:10 | Emergency (ER) | payer MEDICARE, MEDICAID ==
[2020-04-27 13:10] VITALS: BP 116/65; PULSE 95
--- NOTE | 2020-04-27 13:47 | EDM.PDOC ---
ED HPI GENERAL MEDICAL PROBLEM - General Chief Complaint: Lower Extremity Injury/Pain Stated Complaint: AMBULANCE Time Seen by Provider: 04/27/20 13:36 Source of Information: Reports: Patient, RN, RN Notes Reviewed History Limitations: Reports: No Limitations - History of Present Illness INITIAL COMMENTS - FREE TEXT/NARRATIVE: Patient presents to the ED via [facility] with complaints of right, lateral hip pain. He states he first noted the pain two days ago 04/25/20. The patient reports the pain originates in his right, lateral hip and radiates into his right anterior knee. He characterizes the pain as sharp in nature and notes transient numbness/tingling into his anterior knee. He states he has taken Oxycodone 5/325mg which was previously prescribed to him. He denies saddle paraesthesia, difficulty voiding/stooling, or incontinence of urine/stool. He denies a history of hip pain or any recent injury, but attests to falls in the past. The patient attests to smoking a 1/4 pack of cigarettes per day as well as consuming six alcohol beverages per day. Right Hip Pain Score (Numeric/FACES): 8 - Related Data Allergies Allergy/AdvReac Type Severity Reaction Status Date / Time aspirin Allergy Cannot Verified 04/27/20 13:14 Remember azithromycin [From Zithromax] Allergy Cannot Verified 04/27/20 13:14 Remember ibuprofen [From Motrin] AdvReac Mild Abdominal Verified 04/27/20 13:14 Pain contrast Allergy Cannot Uncoded 04/27/20 13:14 Remember Home Meds: Home Meds buPROPion [Wellbutrin] 1 tab PO BID 01/13/18 [History] Clopidogrel Bisulfate [Clopidogrel] 1 tab PO DAILY 07/31/19 [History] Ferrous Sulfate 1 tab PO DAILY 07/31/19 [History] QUEtiapine [SEROquel] 100 mg PO BEDTIME 07/31/19 [History] Loperamide [Imodium] 2 mg PO Q6H PRN #30 cap 08/02/19 [Rx] Potassium Chloride [Klor-Con 10] 20 meq PO DAILY 30 Days tab.er 08/02/19 [Rx] levoFLOXacin [Levaquin] 750 mg PO Q48H #4 tablet 08/02/19 [Rx] Past Medical History - Past Health History Medical/Surgical History: Denies Medical/Surgical History HEENT History: Reports: Other (See Below) 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 eye either. Cardiovascular History: Reports: High Cholesterol Respiratory History: Reports: Bronchitis, Recurrent, PE, Other (See Below) Other Respiratory History: Has had blood clots to legs. and has a stent to the left groin area. Gastrointestinal History: Reports: Bowel Obstruction, Other (See Below) Genitourinary History: Reports: None Musculoskeletal History: Reports: Arthritis, Other (See Below) Other Musculoskeletal History: fx ribs neck and legs. 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 Dermatologic History: Reports: None - Infectious Disease History Infectious Disease History: Reports: None - Past Surgical History Head Surgeries/Procedures: Reports: None GI Surgical History: Reports: Appendectomy, Hernia, Inguinal, Other (See Below) Other GI Surgeries/Procedures: Has esophageal ca. Social & Family History - Family History Family Medical History: No Pertinent Family History - Tobacco Use Tobacco Use Status *Q: Light Tobacco User Years of Tobacco use: 30 Packs/Tins Daily: 0.2 - Caffeine Use Caffeine Use: Reports: Coffee - Alcohol Use Days Per Week of Alcohol Use: 2 Number of Drinks Per Day: 6 Total Drinks Per Week: 12 - Recreational Drug Use Recreational Drug Use: No Review of Systems - Review of Systems Review Of Systems: Comprehensive ROS is negative, except as noted in HPI. ED EXAM, GENERAL - Physical Exam Exam: See Below Exam Limited By: No Limitations General Appearance: Alert, No Apparent Distress Throat/Mouth: Normal Inspection, Normal Voice, No Airway Compromise Head: Atraumatic, Normocephalic Neck: Normal Inspection, Supple, Non-Tender, Full Range of Motion Respiratory/Chest: No Respiratory Distress, Lungs Clear, Normal Breath Sounds, No Accessory Muscle Use, Chest Non-Tender Cardiovascular: Normal Peripheral Pulses, Regular Rate, Rhythm, No Edema, No Gallop, No JVD, No Murmur, No Rub Peripheral Pulses: 2+: Radial (L), Radial (R) GI/Abdominal: Normal Bowel Sounds, Soft, Non-Tender, No Distention, No Mass, Pelvis Stable (Male) Exam: Deferred Rectal (Males) Exam: Deferred Back Exam: Muscle Spasm, Other (Right, lateral hip pain). No: Paraspinal Tenderness, Vertebral Tenderness Extremities: Normal Capillary Refill, Leg Pain (Right lateral hip pain), Limited Range of Motion (To right hip). No: Pedal Edema, Joint Swelling, Increased Warmth, Mottled, Pallor, Redness Neurological: Alert, Oriented, CN II-XII Intact, Normal Cognition, Normal Reflexes, No Motor/Sensory Deficits, Abnormal Gait (Right limp d/t pain; Patient uses a walker and/or cane at baseline) Psychiatric: Normal Affect, Normal Mood Skin Exam: Warm, Dry, Intact, Normal Color, No Rash Course - Vital Signs Last Recorded V/S: Last Vital Signs Temp 97.4 F 04/27/20 13:08 Pulse 95 04/27/20 13:08 Resp 18 04/27/20 13:08 BP 116/65 04/27/20 13:08 Pulse Ox 99 04/27/20 13:08 - Re-Assessments/Exams Free Text/Narrative Re-Assessment/Exam: 04/27/20 Xray of right hip unremarkable for acute processes; no fracture or dislocation appreciated. Rectal stool impaction noted. Findings of examination and imaging discussed with patient. He denies feelings of constipation (no bloating or difficulty with bowel movements) and states he had a soft, formed bowel movement yesterday. Will treat acute sciatica pain with Medrol Dose pack. Will avoid muscle relaxers as patient stated his "legs went weak" with previous doses of these medications. Departure - Departure Time of Disposition: 14:14 Disposition: Home, Self-Care 01 Condition: Good Clinical Impression: Acute right hip pain Sciatica Qualifiers: Laterality: right Qualified Code(s): M54.31 - Sciatica, right side - Discharge Information *PRESCRIPTION DRUG MONITORING PROGRAM REVIEWED*: Not Applicable *COPY OF PRESCRIPTION DRUG MONITORING REPORT IN PATIENT YOHANA: Not Applicable Instructions: Sciatica, [id number] Forms: ED Department Discharge Additional Instructions: Rx: Medrol Dose Pack 1.) You may take acetaminophen (Tylenol) 1000mg every six hours, as pain persists. Do not take ibuprofen, aspirin, or additional NSAIDS while on steroid dose pack. 2.) You may apply BioFreeze or similar muscle relief cream to right hip. 3.) Should you begin to experience signs or symptoms of constipation you may take MiraLAX for relief of stool impaction. Sepsis Event Note (ED) - Evaluation Sepsis Screening Result: No Definite Risk
--- NOTE | 2020-04-27 14:05 | CR ---
EXAMINATION: Hip Min 3V w Pelvis Rt SEX: Male AGE: 80 years CLINICAL HISTORY: 80-year-old male complaining of lateral right pain that radiates to the knee. No known fall. Interpretation: 1. Homogeneous normal bone mineral density. (Intertrochanteric "lucency" probably represents overlying skin line) 2. Symmetric normal-appearing SI and hip joints. No arthritic degenerative changes. 3. No sign of pathologic skeletal lesion, definite pelvic or either hip fracture/dislocation. 4. No foreign bodies. (Rectal stool impaction)
== END 2020-04-27 14:43 | disposition home or self-care (01) ==
LOC: DL.ED 13:10
DX: M54.31 Sciatica, right side (principal); F17.210 Nicotine dependence, cigarettes, uncomplicated; Z88.8 Allergy status to other drugs, medicaments and biological substances; Z88.1 Allergy status to other antibiotic agents; Z88.6 Allergy status to analgesic agent; Z91.041 Radiographic dye allergy status; Z79.02 Long term (current) use of antithrombotics/antiplatelets; Z79.899 Other long term (current) drug therapy
CPT/HCPCS: 99284

== ENCOUNTER 2021-12-07 13:19 | Emergency (ER) | payer MEDICARE, MEDICAID ==
[2021-12-07] MEDS ORDERED: Oxymetazoline 0.05% Nasal Spray 30 ML Bottle NAS ONE ×2 (13:22→13:36)
[2021-12-07] MEDS ORDERED: Lidocaine 2% with EPINEPHrine 1:200,000 20 ML SDV INJECT ONE ×2 (13:22→13:36)
[2021-12-07] MEDS ORDERED: Phenylephrine 0.5% Nasal Spray 15 ML Bot ONE (13:27)
[2021-12-07 13:33] VITALS: BP 144/76; PULSE 105
== END 2021-12-07 13:56 | disposition home or self-care (01) ==
LOC: DL.ED 13:19
DX: R04.0 Epistaxis (principal); Z88.6 Allergy status to analgesic agent; Z88.1 Allergy status to other antibiotic agents; Z91.041 Radiographic dye allergy status; Z79.899 Other long term (current) drug therapy; Z90.49 Acquired absence of other specified parts of digestive tract
CPT/HCPCS: 99283; A9270-GY

== ENCOUNTER 2021-12-23 06:50 | Day surgery (SDC) | payer MEDICARE, MEDICAID ==
[~2021-12-23 06:50] MED LIST: Dextrose 5%-0.45% NaCl 1,000 ML IV SCH; Midazolam 1 MG/ML 2 ML SDV ONE; Sodium Chloride 0.9% 10 ML Syringe FLUSH PRN; Sodium Chloride 0.9% 10 ML Syringe FLUSH SCH; fentaNYL 100 MCG/2 ML SDV ONE
[2021-12-23] MEDS ORDERED: Midazolam 1 MG/ML 2 ML SDV IV ONE ×3 (06:51→07:30)
[2021-12-23] MEDS ORDERED: fentaNYL 100 MCG/2 ML SDV IV ONE ×3 (06:51→07:28)
[2021-12-23 09:53] VITALS: BP 135/67; PULSE 85
== END 2021-12-23 09:40 | disposition home or self-care (01) ==
LOC: DL.ENDO 06:50
PROVIDERS: ATTEND Internal Medicine Gastroenterology
DX: R13.10 Dysphagia, unspecified (principal); I10 Essential (primary) hypertension; E78.5 Hyperlipidemia, unspecified; I73.9 Peripheral vascular disease, unspecified; M54.50 Low back pain, unspecified; D50.9 Iron deficiency anemia, unspecified; F32.A Depression, unspecified; G47.00 Insomnia, unspecified; Z85.01 Personal history of malignant neoplasm of esophagus; Z87.891 Personal history of nicotine dependence; Z90.49 Acquired absence of other specified parts of digestive tract; Z98.890 Other specified postprocedural states
CPT/HCPCS: 43235; J2250; J3010; J7042

== ENCOUNTER 2021-12-24 07:07 | Day surgery (SDC) | payer MEDICARE, MEDICAID ==
[2021-12-24] MEDS ORDERED: Midazolam 1 MG/ML 2 ML SDV IV ONE ×7 (07:08→08:58)
[2021-12-24] MEDS ORDERED: fentaNYL 100 MCG/2 ML SDV IV ONE ×4 (07:08→09:03)
[2021-12-24 11:08] VITALS: BP 127/103; PULSE 85
== END 2021-12-24 11:15 | disposition home or self-care (01) ==
LOC: DL.ENDO 07:07
PROVIDERS: ATTEND Internal Medicine Gastroenterology
DX: K57.30 Diverticulosis of large intestine without perforation or abscess without bleeding (principal); D50.9 Iron deficiency anemia, unspecified; E78.5 Hyperlipidemia, unspecified; I10 Essential (primary) hypertension; I73.9 Peripheral vascular disease, unspecified; G47.00 Insomnia, unspecified; F32.A Depression, unspecified; N52.9 Male erectile dysfunction, unspecified; Z88.8 Allergy status to other drugs, medicaments and biological substances; Z88.1 Allergy status to other antibiotic agents; Z87.891 Personal history of nicotine dependence; Z86.73 Personal history of transient ischemic attack (TIA), and cerebral infarction without residual deficits; Z98.890 Other specified postprocedural states; Z90.49 Acquired absence of other specified parts of digestive tract
CPT/HCPCS: 45378; J2250; J3010; J7042

== ENCOUNTER 2022-04-27 06:02 | Emergency (ER) | payer MEDICARE, MEDICAID ==
[2022-04-27] MEDS: Sodium Chloride 0.9% 10 ML Syringe FLUSH PRN ×2 (06:49→06:51)
[2022-04-27 06:59] LABS: ANION GAP 15.9 mEq/L (7-13); CHLORIDE,CL 109 mmol/L (98-107); SODIUM,NA 144 mmol/L (136-145)
[2022-04-27 07:05] VITALS: PULSE 104
[2022-04-27 07:05] LABS: PTT,PARTIAL THROMBOPLSTIN TIME 27.9 SEC (22.0-34.0)
[2022-04-27 07:08] LABS: ESTIMATED GFR 59 mL/min (>=60)
[2022-04-27 07:21] LABS: CORONAVIRUS COVID-19 NAA NEGATIVE (NEGATIVE); RESPIRATORY SYNCYTIAL VIR NAA NEGATIVE (NEGATIVE)
[2022-04-27] MEDS ORDERED: Furosemide 40 MG/4 ML VIAL IVPUSH ONE (08:10)
[2022-04-27] MEDS ORDERED: cefTRIAXone 2 GM Vial IVPUSH ONE (08:10)
[2022-04-27 08:19] VITALS: BP 110/69
== END 2022-04-27 11:07 ==
LOC: DL.ED 06:02
DX: R06.02 Shortness of breath (principal); R09.02 Hypoxemia; R91.8 Other nonspecific abnormal finding of lung field; R79.0 Abnormal level of blood mineral; E78.00 Pure hypercholesterolemia, unspecified; Z86.73 Personal history of transient ischemic attack (TIA), and cerebral infarction without residual deficits; Z88.1 Allergy status to other antibiotic agents; Z88.2 Allergy status to sulfonamides; Z88.8 Allergy status to other drugs, medicaments and biological substances; Z91.041 Radiographic dye allergy status; Z79.899 Other long term (current) drug therapy; Z20.822 Contact with and (suspected) exposure to COVID-19
CPT/HCPCS: 0241U; 36415; 71045; 71250; 80053; 83605; 83880; 84145; 84484; 85025; 85610; 85730; 86140; 87040; 93005; 93010; 96374; 96375; 99285; 99285-25; J0696; J1940; J3490

== ENCOUNTER 2022-06-18 02:11 | Emergency (ER) | payer MEDICARE, MEDICAID ==
[2022-06-18 02:34] LABS: BASOPHILS PERCENT AUTO 0.4 % (0.0-1.0); EOSINOPHILS PERCENT AUTO 5.4 % (1.0-3.0); HEMATOCRIT 29.7 % (40.0-54.0); MEAN CORPUSCULAR HEMOGLOBIN 22.2 pg (27.0-34.0); MEAN CORPUSCULAR HGB CONC 30.3 g/dL (33.0-35.0); MEAN CORPUSCULAR VOLUME 73.3 fL (80-100); MONOCYTES PERCENT AUTO 6.8 % (2-8); NEUTROPHILS PERCENT AUTO 81.4 % (42.2-75.2); PLATELET COUNT,PLT 419 10^3/uL (150-450); RED BLOOD CELL COUNT 4.05 10^6/uL (4.6-6.2); WHITE BLOOD CELL COUNT,WBC 9.5 10^3/uL (5.0-10.0)
[2022-06-18] MEDS ORDERED: Iopamidol 755 Mg/ML 100 ML Bottle IVPUSH ONE (02:47)
[2022-06-18 02:51] VITALS: BP 107/70; PULSE 87
[2022-06-18 02:57] LABS: ALBUMIN 2.7 g/dL (3.4-5.0); ANION GAP 10.9 mEq/L (7-13); BILIRUBIN TOTAL 0.2 mg/dL (0.2-1.0); BUN/CREATININE RATIO 15.6 (No establ ref range); C-REACTIVE PROTEIN 5.7 mg/dL (0.0-0.9); CALCIUM 8.5 mg/dL (8.5-10.1); CREATININE 1.67 mg/dL (0.70-1.30); EST CRCL DRUG DOSING (CG) 32.5 mL/min; POTASSIUM,K 3.9 mmol/L (3.5-5.1); PROTEIN TOTAL,TP 6.6 g/dL (6.4-8.2)
[2022-06-18 02:58] LABS: LACTIC ACID 1.7 mmol/L (0.4-2.0)
[2022-06-18 03:02] LABS: A/G RATIO 0.69
[2022-06-18 03:18] LABS: CORONAVIRUS COVID-19 NAA NEGATIVE (NEGATIVE); INFLUENZA A NAA NEGATIVE (NEGATIVE); INFLUENZA B NAA NEGATIVE (NEGATIVE); RESPIRATORY SYNCYTIAL VIR NAA NEGATIVE (NEGATIVE)
[2022-06-18] MEDS ORDERED: Furosemide 40 MG/4 ML VIAL IVPUSH ONE (05:21)
[2022-06-18] MEDS ORDERED: Albuterol/Ipratropium 3.0-0.5 MG/3 ML Neb Soln NEB ONE (05:22)
[2022-06-18] MEDS ORDERED: Enoxaparin 80 MG/0.8 ML Syringe SUBCUT ONE (07:11)
== END 2022-06-18 07:56 ==
LOC: DL.ED 02:11
DX: C34.92 Malignant neoplasm of unspecified part of left bronchus or lung (principal); J90 Pleural effusion, not elsewhere classified; J44.9 Chronic obstructive pulmonary disease, unspecified; I25.10 Atherosclerotic heart disease of native coronary artery without angina pectoris; I10 Essential (primary) hypertension; E78.00 Pure hypercholesterolemia, unspecified; Z88.8 Allergy status to other drugs, medicaments and biological substances; Z88.2 Allergy status to sulfonamides; Z91.041 Radiographic dye allergy status; Z88.1 Allergy status to other antibiotic agents; Z79.899 Other long term (current) drug therapy; Z86.73 Personal history of transient ischemic attack (TIA), and cerebral infarction without residual deficits; Z86.16 Personal history of COVID-19; Z20.822 Contact with and (suspected) exposure to COVID-19; Z85.01 Personal history of malignant neoplasm of esophagus
CPT/HCPCS: 0241U; 36415; 71275; 80053; 83605; 83880; 84484; 85025; 85379; 86140; 93005; 93010; 96372; 96374; 99285; 99285-25; J1650; J1940; J7620-GY; Q9967